=== PATIENT | female | born 1930 | race Caucasian/White ===

== ENCOUNTER 2016-04-11 14:31 | Emergency (ER) | payer MEDICARE, OTHER ==
[~2016-04-11] VITALS: Ht 162.6 cm; Wt 72.6 kg
[~2016-04-11 14:31] MED LIST: ALENDRONATE SOD10 MG ORAL; AZITHROMYC200 MG/5 M ORAL; BYSTOLIC10 MG ORAL; CRESTOR20 MG ORAL; DIOVAN320 MG ORAL; EXELON1.5 MG ORAL; GABAPENTIN100 MG ORAL; LINZESS145 MCG PO; MECLIZINE HCL12.5 MG ORAL; NAMENDA5 MG ORAL; NAPROXEN500 M2 ORAL; NITROFURANTOIN100 M2 ORAL; NKM; OXYTROL1 EACH TD; TRIAMCINOLONE10 G1 MC
[2016-04-11 15:24] LABS: BASOPHILS % (AUTO) 0.7 % (0.0-2.0); EOSINOPHILS % (AUTO) 2.3 % (0.0-3.0); LYMPHOCYTES % (AUTO) 28.8 % (20.0-45.0); MEAN CORPUSCULAR HEMOGLOBIN 31.2 PG (27.0-31.0); MEAN CORPUSCULAR HGB CONC 33.5 G/DL (32.0-36.0); MEAN CORPUSCULAR VOLUME 93 FL (80-99); MEAN PLATELET VOLUME 7.9 FL (6.5-10.1); MONOCYTES % (AUTO) 6.1 % (1.0-10.0); NEUTROPHILS % (AUTO) 62.1 % (45.0-75.0); PLATELET COUNT 188 K/UL (150-450); RED BLOOD COUNT 4.19 M/UL (4.20-5.40); RED CELL DISTRIBUTION WIDTH 12.7 % (11.6-14.8); WHITE BLOOD COUNT 12.8 K/UL (4.8-10.8)
[2016-04-11 15:39] LABS: TROPONIN I < 0.30 ng/mL (<=0.30)
[2016-04-11 15:42] LABS: ALANINE AMINOTRANSFERASE 12 U/L (3-33); ALBUMIN/GLOBULIN RATIO 1.3 (1.0-2.7); ANION GAP 17 (5-15); ASPARTATE AMINO TRANSFERASE 18 U/L (5-40); CALCIUM 8.9 mg/dL (8.6-10.2); CARBON DIOXIDE 21 mEQ/L (20-30); CHLORIDE 99 mEQ/L (98-107); CREATININE 1.1 mg/dL (0.5-0.9); HEMOLYSIS 9; POTASSIUM 4.9 mEQ/L (3.4-4.9); SODIUM 137 mEQ/L (135-145); TOTAL PROTEIN 6.7 g/dL (6.6-8.7)
--- NOTE | 2016-04-11 15:45 | Diagnostic Imaging Report ---
Indication: SYNCOPE, dizziness, weakness Technique: spiral acquisitions obtained through the brain. Angled axial and coronal 5 x 5 mm slices were reconstructed. No IV contrast utilized. Radiation dose was minimized using automated exposure control Total dose length product 1291 mGycm. CTDIvol(s) 70 mGy Comparison: none FINDINGS: No acute hemorrhage or edema. No mass effect or midline shift. There is age-related enlargement of the ventricles and extra axial CSF spaces, the latter in particular. There is periventricular deep white matter ischemic change. Normal croft-white differentiation. Visualized orbits are unremarkable. Visualized sinuses are unremarkable. Intact calvarium. IMPRESSION: Chronic and age-related changes. Negative for acute intracranial bleed or mass effect The CT scanner at [facility] is accredited by the [employer] and the scans are performed using protocols designed to limit radiation exposure to as low as reasonably achievable to attain images of sufficient resolution adequate for diagnostic evaluation
[2016-04-11 15:52] LABS: CKMB 1.8 ng/mL (< 3.8)
--- NOTE | 2016-04-11 16:13 | Diagnostic Imaging Report ---
Indication: SOB Technique: One view of the chest Comparison: none Findings: The heart is borderline enlarged. The aorta is calcified. Upper mediastinum is unremarkable. The lungs and pleural spaces are clear Impression: No acute process Borderline cardiomegaly
[2016-04-11 16:56] VITALS: BP 128/51
[2016-04-11 16:58] VITALS: BP 128/51
--- NOTE | 2016-04-11 17:04 | Emergency Room Report ---
History of Present Illness General Chief Complaint: Generalized Weakness Source: Family Member, Medical Record, PMD Present Illness HPI 86 YO F BIBEMS with hypotension/nausea/near-syncope. Per family, patient went to PMD Dr Mullins's office today after home measured elevated BP readings. 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 Already takes 2x meds for HTN. Dr Mullins added hydralazine 100mg. Patient took after doctor visit, soon thereafter was weak, nausea in car. Family flagged down [facility] who called EMS. VS stable and normal glucose on scene. Patient c/o headache, nausea and feeling weak. 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 Hx Cerebrovascular Accident: Yes Review of Systems All Other Systems: negative except mentioned in HPI Physical Exam Vital Signs Date Time Temp Pulse Resp B/P Pulse Ox O2 Delivery O2 Flow Rate FiO2 04/11/16 14:25 97.9 60 14 91/47 95 04/11/16 16:56 Room Air Sp02 EP Interpretation: reviewed, normal General Appearance: normal inspection, well appearing, no apparent distress, alert, GCS 15, non-toxic Head: normocephalic, atraumatic Eyes: bilateral eye EOMI, bilateral eye PERRL ENT: normal ENT inspection, hearing grossly normal, normal voice Neck: normal inspection, full range of motion, supple, no bony tend Respiratory: normal inspection, lungs clear, normal breath sounds, no respiratory distress, no retraction, no wheezing Cardiovascular #1: regular rate, rhythm, no edema Gastrointestinal: normal inspection, normal bowel sounds, non tender, soft, no guarding, no hernia Genitourinary: no CVA tenderness Musculoskeletal: normal inspection, back normal, normal range of motion, Angela' s Sign negative Neurologic: normal inspection, alert, oriented x3, responsive, 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 VS now stable. Afebrile. No focal neuro deficits ECG is NSR, no ischemia. Troponin 0. Mild SAMIR on labs - patient drinking water Nausea/headache resolved in ED with analgesia I spoke to Dr Mullins, recommends changing hydralazine to BID dosing 50mg BID and DC home with followup with him as needed Family amenable to plan DC home EKG Diagnostic Results Rate: normal Rhythm: NSR ST Segments: no acute changes ASA given to the pt in ED: No Rhythm Strip Diag. Results EP Interpretation: yes Rate: 60 Rhythm: NSR, no PVC's, no ectopy Chest X-Ray Diagnostic Results EP Interpretation: Yes Findings: no consolidation, no effusion, no pneumothorax, no acute cardiopulmonary disease Number of Views: 1 Last Vital Signs Date Time Temp Pulse Resp B/P Pulse Ox O2 Delivery O2 Flow Rate FiO2 04/11/16 16:56 69 14 128/51 97 Room Air 04/11/16 14:25 97.9 Status: improved Disposition: HOME, SELF-CARE Condition: Improved Patient Instructions: Hypotension, [id number], Near-Syncope, [id number] Additional Instructions: - Take hydralazine 50mg twice daily - Please follow up with Dr Mullins in 2-3 days TESSIE CARLOS M.D. Apr 11, 2016 17:04
--- NOTE | 2016-04-19 15:49 | Cardiology Report ---
APPROVED REPORT EKG Measurement Heart [id number] Normal sinus rhythm Normal ECG
== END 2016-04-11 17:12 | disposition home or self-care (01) ==
LOC: EDBD 14:31 → EMR 15:31 → EDBEDREQ 16:43 → EMR 17:12
DX: I95.9 Hypotension, unspecified (principal); R53.1 Weakness; M06.9 Rheumatoid arthritis, unspecified; I10 Essential (primary) hypertension; Z86.73 Personal history of transient ischemic attack (TIA), and cerebral infarction without residual deficits
CPT/HCPCS: 36415; 70450; 71010; 80053; 82550; 82553; 84484; 85025; 93005; 96374; 96375; 99284; J2405

== ENCOUNTER 2016-11-02 12:11 | Outpatient (CLI) | payer MEDICARE, OTHER ==
--- NOTE | 2016-11-02 15:07 | Diagnostic Imaging Report ---
Indication: PAIN, bruised right lower ribs posteriorly post fall Technique: Level views of the right ribs Comparison: None Findings: The ribs are suboptimally demonstrated, due to patient body habitus and osteoporosis. No definite acute fractures. No gross pneumothorax. Some atelectatic changes are seen at the right lung base. Impression: No definite acute process
--- NOTE | 2016-11-05 08:00 | Diagnostic Imaging Report ---
Indication: Chest pain status post fall Technique: Two views of the chest Comparison: 125-17 Findings: The heart is enlarged. Aorta is tortuous and calcified. There are left upper quadrant surgical clips. Lungs and pleural spaces are clear Impression: No acute process
== END 2016-11-02 14:11 | disposition home or self-care (01) ==
LOC: RAD 12:11
DX: R07.9 Chest pain, unspecified (principal); R07.81 Pleurodynia; I51.7 Cardiomegaly
CPT/HCPCS: 71020

== ENCOUNTER 2017-04-17 17:26 | Emergency (ER) | payer MEDICARE, OTHER ==
[~2017-04-17] VITALS: Ht 157.5 cm; Wt 56.7 kg
[2017-04-17 17:37] VITALS: BP 182/58
[2017-04-17] MEDS ORDERED: fentaNYL 100 mcg/2 mL IV ONE (18:00)
[2017-04-17 18:40] LABS: BASOPHILS % (AUTO) 0.7 % (0.0-2.0); EOSINOPHILS % (AUTO) 3.2 % (0.0-3.0); HEMATOCRIT 37.8 % (37.0-47.0); HEMOGLOBIN 12.6 G/DL (12.0-16.0); LYMPHOCYTES % (AUTO) 32.4 % (20.0-45.0); MEAN CORPUSCULAR VOLUME 93 FL (80-99); MONOCYTES % (AUTO) 6.7 % (1.0-10.0); PLATELET COUNT 177 K/UL (150-450); RED BLOOD COUNT 4.05 M/UL (4.20-5.40); RED CELL DISTRIBUTION WIDTH 13.6 % (11.6-14.8); WHITE BLOOD COUNT 8.2 K/UL (4.8-10.8)
[2017-04-17 18:52] LABS: INR 1.1 (0.9-1.1)
[2017-04-17 18:55] LABS: ANION GAP 6 mmol/L (5-15); BLOOD UREA NITROGEN 18 mg/dL (7-18); CALCIUM 8.8 MG/DL (8.5-10.1); CARBON DIOXIDE 25 MMOL/L (21-32); CHLORIDE 106 MMOL/L (98-107); CREATININE 0.8 MG/DL (0.55-1.30); SODIUM 137 MMOL/L (136-145)
[2017-04-17 19:05] LABS: ALANINE AMINOTRANSFERASE 14 U/L (12-78); ALBUMIN 3.3 G/DL (3.4-5.0); ALKALINE PHOSPHATASE 46 U/L (46-116); ASPARTATE AMINO TRANSFERASE 18 U/L (15-37); BILIRUBIN,TOTAL 0.3 MG/DL (0.2-1.0); CREATINE KINASE 102 U/L (26-308)
[2017-04-17 20:15] VITALS: BP 161/53
--- NOTE | 2017-04-17 20:40 | Emergency Room Report ---
History of Present Illness General Chief Complaint: Hypertension Source: Patient Present Illness HPI Patient presents with headache. Usually when this happens, her hypertension is out of control. Systolic at home >200. Also some vague abdominal discomfort. No fevers, NVD, dysuria. RAVI rated at 3/10, pressure, frontal, not radiating, constant. Started gradually earlier today. H/O HTN. Compliant on meds without recent change. CVA in past. Usual meds given today. No meds for RAVI. Allergies: Coded Allergies: No Known Allergies (Unverified , 03/07/16) Patient History Past Medical History: see triage record Past Surgical History: pacemaker Social History: Denies: smoking, alcohol use Social History Narrative with daughter who works for Dr. Mullins. Last Menstrual Period: na Reviewed Nursing Documentation: PMH: Agreed, PSxH: Agreed Nursing Documentation-PMH Past Medical History: No History, Except For Hx Hypertension: Yes Hx Cerebrovascular Accident: Yes Review of Systems All Other Systems: negative except mentioned in HPI Physical Exam Vital Signs Date Time Temp Pulse Resp B/P (MAP) Pulse Ox O2 Delivery O2 Flow Rate FiO2 04/17/17 17:27 97.5 63 18 203/79 94 Room Air Sp02 EP Interpretation: reviewed, normal General Appearance: well appearing, no apparent distress, GCS 15 Head: normocephalic Eyes: bilateral eye normal inspection, bilateral eye PERRL ENT: moist mucus membranes Neck: supple Respiratory: lungs clear, normal breath sounds Cardiovascular #1: regular rate, rhythm Cardiovascular #2: 2+ radial (R) Gastrointestinal: normal inspection, normal bowel sounds, non tender, no mass, non-distended Musculoskeletal: back normal, gait/station normal, normal range of motion Neurologic: alert, oriented x3, motor strength/tone normal, DTRs symmetric, sensory intact, speech normal, other - slight facial assymmetry Psychiatric: mood/affect normal Skin: normal inspection, warm/dry Medical Decision Making Diagnostic Impression: Primary Impression: Hypertension Qualified Codes: I10 - Essential (primary) hypertension Additional Impression: Headache Qualified Codes: R51 - Headache ER Course Patient with RAVI and systolic HTN. Ddx: hypertensive urgency, malignant hypertension, renal failure, HTN related to pain amongst others. Evaluation with EKG, CXR and labs. Due to non-focal neurologic exam, CT not indicated. Will treat pain and recheck BP. EKG without injury. CXR with slight inc cor. Labs completely normal. Improved with decreased pain and improved BP. At time of possible d/c, patient BP again high. Treated with hydralazine. BP improved before d/c to home. Patient stable for outpatient observation and treatment. Laboratory Tests Test 04/17/17 18:15 White Blood Count 8.2 K/UL (4.8-10.8) Red Blood Count 4.05 M/UL (4.20-5.40) L Hemoglobin 12.6 G/DL (12.0-16.0) Hematocrit 37.8 % (37.0-47.0) Mean Corpuscular Volume 93 FL (80-99) Mean Corpuscular Hemoglobin 31.1 PG (27.0-31.0) H Mean Corpuscular Hemoglobin Concent 33.3 G/DL (32.0-36.0) Red Cell Distribution Width 13.6 % (11.6-14.8) Platelet Count 177 K/UL (150-450) Mean Platelet Volume 8.2 FL (6.5-10.1) Neutrophils (%) (Auto) 57.0 % (45.0-75.0) Lymphocytes (%) (Auto) 32.4 % (20.0-45.0) Monocytes (%) (Auto) 6.7 % (1.0-10.0) Eosinophils (%) (Auto) 3.2 % (0.0-3.0) H Basophils (%) (Auto) 0.7 % (0.0-2.0) Prothrombin Time 11.0 SEC (9.30-11.50) Prothrombin Time INR 1.1 (0.9-1.1) PTT 28 SEC (23-33) Sodium Level 137 MMOL/L (136-145) Potassium Level 4.0 MMOL/L (3.5-5.1) Chloride Level 106 MMOL/L (98-107) Carbon Dioxide Level 25 MMOL/L (21-32) Anion Gap 6 mmol/L (5-15) Blood Urea Nitrogen 18 mg/dL (7-18) Creatinine 0.8 MG/DL (0.55-1.30) Estimate Glomerular Filtration Rate mL/min (>60) Glucose Level 128 MG/DL (74-106) H Calcium Level 8.8 MG/DL (8.5-10.1) Total Bilirubin 0.3 MG/DL (0.2-1.0) Aspartate Amino Transferase (AST) 18 U/L (15-37) Alanine Aminotransferase (ALT) 14 U/L (12-78) Alkaline Phosphatase 46 U/L (46-116) Total Creatine Kinase 102 U/L (26-308) Troponin I 0.001 ng/mL (0.000-0.056) Pro-B-Type Natriuretic Peptide 1378 pg/mL (0-125) H Total Protein 6.7 G/DL (6.4-8.2) Albumin 3.3 G/DL (3.4-5.0) L Globulin 3.4 g/dL Albumin/Globulin Ratio 1.0 (1.0-2.7) EKG Diagnostic Results Rate: bradycardiac ST Segments: no acute changes Rhythm Strip Diag. Results EP Interpretation: yes Rhythm: no PVC's, no ectopy, other - lisa Chest X-Ray Diagnostic Results Chest X-Ray Diagnostic Results : Chest X-Ray Ordered: Yes # of Views/Limited/Complete: 1 View Indication: Other EP Interpretation: Yes Interpretation: no consolidation, no effusion, no pneumothorax, other - Cardiomegaly Impression: No acute disease Electronically Signed by: Electronically signed by Marky Avila MD Status: improved Disposition: HOME, SELF-CARE Condition: Improved Referrals: JESSICA MULLINS (PCP) Marky Avila M.D. Apr 17, 2017 20:40
[2017-04-17 21:46] VITALS: BP 149/46
--- NOTE | 2017-04-18 09:33 | Diagnostic Imaging Report ---
Indication: Headache Technique: XRAY Chest 1v Comparison: 11/02/2016 Findings: Stable cardiomegaly. Atherosclerotic calcifications noted in the aortic arch. There is no focal airspace consolidation, pleural effusion or pneumothorax. No acute osseous abnormality seen. Impression: No radiographic evidence of acute cardiopulmonary disease. Stable cardiomegaly.
--- NOTE | 2017-04-21 17:05 | Cardiology Report ---
APPROVED REPORT EKG Measurement Heart [id number] Sinus bradycardia with 1st degree AV block Cannot rule out Anterior infarct, age undetermined Abnormal ECG
== END 2017-04-17 21:46 | disposition home or self-care (01) ==
LOC: EMR 18:03
DX: I10 Essential (primary) hypertension (principal); R51 Headache; Z86.73 Personal history of transient ischemic attack (TIA), and cerebral infarction without residual deficits
CPT/HCPCS: 36415; 71045; 80053; 82550; 83880; 84484; 85025; 85610; 85730; 93005; 96374; 96375; 99284; J0360; J2405; J3010